=== PATIENT | female | born 1940 ===

== ENCOUNTER → 2018-08-19 19:33 | Outpatient (REF) | payer MEDICARE, OTHER, SELFPAY | LOC: LAB 19:33 | PROVIDERS: Family Provider Family Medicine Geriatric Medicine; PCP Family Medicine Geriatric Medicine; Visit Provider Physician Assistant | DX: N39.0 Urinary tract infection, site not specified (principal) | CPT/HCPCS: 87077; 87086; 87186 ==

== ENCOUNTER → 2018-09-16 19:51 | Outpatient (REF) | payer MEDICARE, SELFPAY | LOC: LAB 19:51 | PROVIDERS: Family Provider Family Medicine Geriatric Medicine; PCP Family Medicine Geriatric Medicine; Visit Provider Physician Assistant Medical | DX: N39.0 Urinary tract infection, site not specified (principal) | CPT/HCPCS: 87077; 87086 ==